=== PATIENT | female | born 1990 | race African-American/Black ===

== ENCOUNTER 2017-03-09 16:44 | Emergency (ER) | payer SELFPAY ==
[~2017-03-09] VITALS: Ht 175.3 cm; Wt 87.0 kg
[2017-03-09 16:50] VITALS: BP 120/76
== END 2017-03-10 00:30 | disposition left against medical advice (07) ==
LOC: ER 16:44
DX: M25.561 Pain in right knee (principal); Z53.21 Procedure and treatment not carried out due to patient leaving prior to being seen by health care provider

== ENCOUNTER 2021-09-26 00:12 | Emergency (ER) | payer SELFPAY ==
[~2021-09-26] VITALS: Ht 172.7 cm; Wt 97.0 kg
[2021-09-26 00:44] VITALS: BP 138/88
[2021-09-26] MEDS ORDERED: IBUP-2029 MT (03:25)
[2021-09-26] MEDS ORDERED: AMOX-494 MT (03:25)
[2021-09-26] MEDS ORDERED: ACETAMINOPHEN 325MG TABLET PO ONE (03:30)
[2021-09-26] MEDS ORDERED: AMOXICILLIN 500 MG CAPSULE PO ONE (03:30)
== END 2021-09-26 04:00 | disposition home or self-care (01) ==
LOC: ER 00:30
DX: H66.93 Otitis media, unspecified, bilateral (principal)
CPT/HCPCS: 99283

== ENCOUNTER 2022-09-14 12:32 | Day surgery (SDC) | payer MEDICAID ==
[~2022-09-14] VITALS: Ht 172.7 cm; Wt 90.0 kg
[~2022-09-14 12:32] MED LIST: AMOX-494 MT; IBUP-2029 MT
[2022-09-14 12:50] VITALS: BP 173/150
[2022-09-14] MEDS ORDERED: ACETAMINOPHEN 325MG TABLET PO ONE (13:15)
[2022-09-14 13:16] LABS: BASOPHILS % 0.4 % (0.0-2.0); EOSINOPHILS % 1.3 % (0.0-5.0); HEMATOCRIT. 36.7 % (36.0-48.0); HEMOGLOBIN. 12.6 g/dL (12.0-16.0); MEAN CORPUSCULAR HEMOGLOBIN 29.9 pg (28.0-32.0); MEAN PLATELET VOLUME 7.5 fl (7.4-10.4); MONOCYTES % 10.1 % (2.0-8.0); NEUTROPHILS % 60.2 % (40.0-76.0); PLATELET 270 x1000/uL (130-400); RED BLOOD CELL COUNT 4.22 mill/uL (4.2-5.4); RED CELL DISTRIBUTION WIDTH 15.9 % (11.6-14.6)
[2022-09-14 13:18] LABS: CHLORIDE 110 mEq/L (98-107)
[2022-09-14 13:29] LABS: B-HCG QUANTITATIVE 256 mIU/mL (<3)
[2022-09-14] MEDS ORDERED: SODIUM CHLORIDE 0.9% 1,000 ML IV ONE (14:30)
[2022-09-14 16:42] LABS: HEMATOCRIT 34.2 % (36.0-48.0); HEMOGLOBIN 11.6 g/dL (12.0-16.0)
[2022-09-14] MEDS ORDERED: MISOPROSTOL 100MCG TABLET PO STA (17:09)
[2022-09-14] MEDS ORDERED: METHYLERGONOVINE MALEATE 0.2 MG/ML IM ONE (17:15)
[2022-09-14] MEDS ORDERED: ACETAMINOPHEN 325MG TABLET PO NR (17:30)
[2022-09-14] MEDS ORDERED: LACTATED RINGERS 1,000 ML IV SCH (18:45)
[2022-09-14] MEDS ORDERED: RHO(D) IMMUNE GLOBULIN 300 MCG/SYR IM NR (18:45)
[2022-09-14] MEDS ORDERED: DEXAMETHASONE 4MG/ML 1ML VIAL ONE (18:53)
[2022-09-14] MEDS ORDERED: FENTANYL CITRATE/PF 50MCG/ML 2ML VIAL ONE (18:53)
[2022-09-14] MEDS ORDERED: ONDANSETRON HCL 4MG/2ML INJ ONE (18:53)
[2022-09-14] MEDS ORDERED: PROPOFOL 200MG/20ML VIAL IV ONE ×2 (18:53→20:22)
[2022-09-14] MEDS ORDERED: MIDAZOLAM HCL 2 MG/2 ML VIAL ONE ×2 (18:53→20:16)
[2022-09-14] MEDS ORDERED: LIDOCAINE HCL 1% 10 MG/ML 10ML VIAL ONE (18:53)
[2022-09-14] MEDS ORDERED: OXYTOCIN 10 UNITS/ML 1ML ONE (20:09)
[2022-09-14] MEDS ORDERED: CEFAZOLIN SODIUM 1000MG/VIAL ONE (20:10)
[2022-09-14] MEDS ORDERED: KETOROLAC 30MG/ML VIAL ONE (20:27)
[2022-09-14 20:37] LABS: CLARITY URINE TURBID (CLEAR); COLOR URINE RED (YELLOW); KETONES URINE 2+ (NEGATIVE); LEUKOCYTE ESTERASE URINE 3+ (NEGATIVE); NITRITE URINE POSITIVE (NEGATIVE); OCCULT BLOOD URINE 2+ (NEGATIVE); PROTEIN URINE 2+ (NEGATIVE); SPECIFIC GRAVITY URINE 1.021 (1.005-1.030); UROBILINOGEN URINE 0.2 E.U./dL (0.2-1.0)
[2022-09-14] MEDS ORDERED: FENTANYL CITRATE/PF 50MCG/ML 2ML VIAL IV PRN (20:45)
[2022-09-14 20:56] LABS: *BARBITURATES SCREEN URINE NEGATIVE (NEGATIVE); *BENZODIAZEPINES SCREEN URINE NEGATIVE (NEGATIVE); METHADONE URINE SCREEN NEGATIVE (NEGATIVE); OPIATES URINE SCREEN NEGATIVE (NEGATIVE); PHENCYCLIDINE URINE SCREEN NEGATIVE (NEGATIVE)
[2022-09-14 20:59] LABS: *AMPHETAMINES SCREEN URINE PRESUMTIVE POSITIVE (NEGATIVE); *COCAINE SCREEN URINE PRESUMTIVE POSITIVE (NEGATIVE); CANNABINOID URINE SCREEN PRESUMTIVE POSITIVE (NEGATIVE)
[2022-09-14] MEDS ORDERED: IBUP-2030 MT (21:08)
== END 2022-09-14 23:20 | disposition admitted as inpatient to this hospital (09) ==
LOC: ER 12:43 → OR 20:05
PROVIDERS: ATTEND Obstetrics & Gynecology
DX: O03.4 Incomplete spontaneous abortion without complication (principal); Z3A.01 Less than 8 weeks gestation of pregnancy; Z79.899 Other long term (current) drug therapy
CPT/HCPCS: 36415; 59812; 76801; 76817; 80053; 80305; 81003; 84702; 85014; 85018; 85025; 86850; 86886; 86900; 86901; 88305; 90384; 96360; 96372; 99291; J0690; J1100; J1885; J2210; J2250; J2405; J2704; J3010; J3490; J7030; J2791

== ENCOUNTER 2025-04-30 20:42 | Emergency (ER) | payer MEDICAID ==
[~2025-04-30] VITALS: Ht 175.3 cm; Wt 114.0 kg
[~2025-04-30 20:42] MED LIST changes: +IBUP-1455 MT; -IBUP-2029 MT; +IBUP-2030 MT
[2025-04-30 20:56] VITALS: O2SAT 99
[2025-04-30] MEDS: KETOROLAC 15MG/ML VIAL IV ONE (21:45)
[2025-04-30] MEDS: SODIUM CHLORIDE 0.9% 1,000 ML IV ONE (21:45)
[2025-04-30] MEDS: HALOPERIDOL LACTATE 5MG/ML VIAL IM ONE (21:50)
[2025-04-30] MEDS: LORAZEPAM 2MG/ML UD SYRINGE IM SCH ×2 (22:01→23:00)
[2025-05-01 00:21] LABS: BASOPHILS % 0.2 % (0.0-2.0); EOSINOPHILS % 0.5 % (0.0-5.0); HEMATOCRIT. 32.4 % (36.0-48.0); HEMOGLOBIN. 10.6 g/dL (12.0-16.0); LYMPHOCYTES % 25.1 % (20.0-50.0); MEAN PLATELET VOLUME 7.8 fl (7.4-10.4); MONOCYTES % 12.4 % (2.0-8.0); NEUTROPHILS % 61.8 % (40.0-76.0); PLATELET 182 x1000/uL (130-400); RED BLOOD CELL COUNT 4.03 mill/uL (4.2-5.4); RED CELL DISTRIBUTION WIDTH 16.4 % (11.6-14.6)
[2025-05-01 00:35] LABS: CREATININE 0.5 mg/dL (0.6-1.0); UREA NITROGEN BLOOD < 5 mg/dL (9-23)
[2025-05-01 00:36] LABS: TROPONIN I HIGH SENSITIVITY < 4 ng/L (3.0-34)
[2025-05-01 00:37] LABS: ASPARTATE AMINOTRANSFERASE 22 IU/L (<34); BILIRUBIN DIRECT 0.1 mg/dL (<=3.0); PROTEIN TOTAL 5.8 g/dL (6.0-8.3)
[2025-05-01 00:38] LABS: BILIRUBIN TOTAL 0.4 mg/dL (0.1-1.0)
[2025-05-01] MEDS: POTASSIUM CHLORIDE 20MEQ/PACKET PO ONE (01:10)
[2025-05-01 01:17] VITALS: BP 138/98; PULSE 92; RESP 20; TEMP 36.8; O2SAT 100
[2025-05-01] MEDS ORDERED: FAMO40TA70 MT (03:06)
[2025-05-01] MEDS ORDERED: MAG355OR21 MT (03:06)
== END 2025-05-01 01:28 | disposition home or self-care (01) ==
LOC: ER 20:42 → CMPBEDREQ 05-02 10:47
DX: R06.02 Shortness of breath (principal); F41.0 Panic disorder [episodic paroxysmal anxiety]; Z79.899 Other long term (current) drug therapy
CPT/HCPCS: 80076; 80048; 80307; 80329; 80320; 82550; 83880; 83690; 83735; 85025; 84484; 36415; 71045; 96372; 99285; J1630; J2060; J7030; Z7610 ×2; G0480

== ENCOUNTER 2025-05-01 01:53 | Emergency (ER) | payer MEDICAID ==
[~2025-05-01] VITALS: Ht 172.7 cm; Wt 117.0 kg
[2025-05-01 01:56] VITALS: O2SAT 98
[2025-05-01 01:58] VITALS: BP 151/104; PULSE 102; RESP 18; TEMP 36.7; O2SAT 99
[2025-05-01] MEDS: MAGNESIUM/ALUMINUM HYDROXIDE/SIMETHICONE 30ML UDC PO ONE (02:52)
[2025-05-01] MEDS: FAMOTIDINE 20MG TABLET PO ONE (02:52)
[2025-05-01] MEDS: ACETAMINOPHEN 500MG TABLET PO ONE (02:52)
[2025-05-01] MEDS ORDERED: FAMO40TA70 MT (03:06)
[2025-05-01] MEDS ORDERED: MAG355OR21 MT (03:06)
== END 2025-05-01 05:39 | disposition home or self-care (01) ==
LOC: ER 02:35
DX: K29.70 Gastritis, unspecified, without bleeding (principal)
CPT/HCPCS: 99283

== ENCOUNTER 2025-05-01 05:56 | Emergency (ER) | payer MEDICAID ==
[~2025-05-01] VITALS: Ht 170.2 cm; Wt 106.0 kg
[~2025-05-01 05:56] MED LIST changes: +FAMO40TA70 MT; +MAG355OR21 MT
[2025-05-01 05:58] VITALS: BP 158/101; PULSE 105; RESP 18; TEMP 36.5; O2SAT 100
[2025-05-01] MEDS: DICYCLOMINE HCL 10MG/ML 2ML VIAL IM ONE (08:30)
== END 2025-05-01 09:19 | disposition left against medical advice (07) ==
LOC: ER 06:05
DX: R10.9 Unspecified abdominal pain (principal); Z79.899 Other long term (current) drug therapy
CPT/HCPCS: 96372; 99283; J0500; Z7610 ×4; A4606

== ENCOUNTER 2025-05-29 04:46 | Emergency (ER) | payer MEDICAID, OTHER ==
[~2025-05-29] VITALS: Ht 170.2 cm; Wt 91.0 kg
[2025-05-29 04:47] VITALS: O2SAT 100
[2025-05-29] MEDS: ONDANSETRON HCL 4MG/2ML INJ IV ONE (05:38)
[2025-05-29] MEDS: SODIUM CHLORIDE 0.9% 1,000 ML IV ONE (05:38)
[2025-05-29] MEDS: MORPHINE SULFATE 4 MG/ML INJ (FOR IV/IM USE) IV ONE (05:39)
[2025-05-29 05:57] LABS: BASOPHILS % 0.3 % (0.0-2.0); EOSINOPHILS % 0.4 % (0.0-5.0); HEMATOCRIT. 35.8 % (36.0-48.0); HEMOGLOBIN. 11.5 g/dL (12.0-16.0); LYMPHOCYTES % 22.0 % (20.0-50.0); MEAN PLATELET VOLUME 9.0 fl (7.4-10.4); MONOCYTES % 9.7 % (2.0-8.0); NEUTROPHILS % 67.6 % (40.0-76.0); PLATELET 140 x1000/uL (130-400); RED BLOOD CELL COUNT 4.59 mill/uL (4.2-5.4); RED CELL DISTRIBUTION WIDTH 16.9 % (11.6-14.6)
[2025-05-29 06:10] LABS: CREATININE 0.6 mg/dL (0.6-1.0); PROTEIN TOTAL 7.0 g/dL (6.0-8.3); UREA NITROGEN BLOOD < 5 mg/dL (9-23)
[2025-05-29 06:12] LABS: ASPARTATE AMINOTRANSFERASE 39 IU/L (<34); BILIRUBIN DIRECT 0.1 mg/dL (<=3.0); BILIRUBIN TOTAL 0.4 mg/dL (0.1-1.0)
[2025-05-29 06:29] LABS: HCG SCREEN POSITIVE
[2025-05-29 07:53] VITALS: BP 131/84; PULSE 68; RESP 18; TEMP 36.7; O2SAT 98
== END 2025-05-29 07:56 | disposition short-term general hospital (02) ==
LOC: ER 04:46 → CANBEDREQ 08:10
DX: O26.893 Other specified pregnancy related conditions, third trimester (principal); R10.24 Suprapubic pain; Z79.899 Other long term (current) drug therapy; Z98.890 Other specified postprocedural states; Z3A.35 35 weeks gestation of pregnancy
CPT/HCPCS: 99291; 96374; 96361; 96375; 86592; 80076; 80048; 84703; 84702; 83690; 85025; 36415; 76815; 76817; 93005; J2405; J2270; J7030